=== PATIENT | female | born 1980 | race African-American/Black ===

== ENCOUNTER 2017-05-28 07:31 | Emergency (ER) | payer BC ==
[~2017-05-28] VITALS: Ht 167.6 cm; Wt 110.0 kg
[~2017-05-28 07:31] MED LIST: ADVIL200 M1 OR; CIPROFLOXACN500 MG PO; CORTISPORIN OTI10 ML AD; FLAGYL500 MG OR; LORTAB5 OR; MELOXICAM7.5 MG PO; NAPROSYN500 MG OR; NAPROSYN500 MG PO; NO; NO HOME MEDS; PHENERGAN25 MG/TAB PO; ULTRAM50 M1 PO
[2017-05-28] MEDS ORDERED: MIRALAX3350 N1 PO (08:08)
[2017-05-28 08:11] VITALS: BP 142/69
== END 2017-05-28 08:19 | disposition home or self-care (01) | DRG 394 ==
LOC: ED 07:31
DX: K64.4 Residual hemorrhoidal skin tags (principal); K62.5 Hemorrhage of anus and rectum

== ENCOUNTER 2017-12-09 15:28 | Inpatient (IN) | payer BC ==
[~2017-12-09] VITALS: Ht 167.6 cm; Wt 94.3 kg
[~2017-12-09 15:28] MED LIST changes: +MIRALAX3350 N1 PO
[2017-12-09 16:16] VITALS: BP 135/74
[2017-12-09 17:39] LABS: HEMATOCRIT 38.3 % (37.0-47.0); HEMOGLOBIN 12.5 g/dl (12.0-16.0); IMMATURE GRANULOCYTES 0.1 % (0.0-1.0); MEAN CELL VOLUME 81.1 fL CALC (80.0-100.0); MEAN CORPUSCULAR HGB 26.5 pG CALC (26.0-32.0); MEAN CORPUSCULAR HGB CONC 32.6 g/L CALC (32.0-36.0); NEUT# 3.6 thou/uL (2.00-7.15); RED BLOOD COUNT 4.72 mill/uL (4.20-5.60); RED CELL DISTRI WIDTH 14.6 % (11.5-15.5)
[2017-12-09 17:59] LABS: ANION GAP 16 (6-22 (CALC)); BUN 9 mg/dL (7-17); BUN/CREATININE RATIO 12 (12-20 (CALC)); CARBON DIOXIDE 23 mmol/l (22-30); CHLORIDE 108 mmol/l (95-108); CREATININE 0.8 mg/dL (0.5-1.0); GFR > 60 ML/MIN (>=60 (CALC)); GFR FOR AFR.AMER. > 60 ML/MIN (>=60 (CALC)); POTASSIUM 3.7 mmol/l (3.5-5.1); SODIUM 142 mmol/l (137-146)
[2017-12-09 20:30] VITALS: BP 119/81
[2017-12-10] VITALS (11 sets, daily range): BP systolic 95–132; BP diastolic 52–82
[2017-12-10 05:24] LABS: ANION GAP 12 (6-22 (CALC)); BUN 6 mg/dL (7-17); BUN/CREATININE RATIO 9 (12-20 (CALC)); CARBON DIOXIDE 25 mmol/l (22-30); CHLORIDE 109 mmol/l (95-108); CREATININE 0.7 mg/dL (0.5-1.0); GFR > 60 ML/MIN (>=60 (CALC)); GFR FOR AFR.AMER. > 60 ML/MIN (>=60 (CALC)); POTASSIUM 3.8 mmol/l (3.5-5.1); SODIUM 141 mmol/l (137-146)
[2017-12-10 05:42] LABS: URINE BILIRUBIN - DIPSTICK NEGATIVE (NEGATIVE); URINE BLOOD DIPSTICK NEGATIVE (NEGATIVE); URINE COLOR YELLOW; URINE GLUCOSE - DIPSTICK NEGATIVE (NEGATIVE); URINE KETONE NEGATIVE (NEGATIVE); URINE LEUK ESTERASE NEGATIVE (NEGATIVE); URINE NITRITE - DIPSTICK NEGATIVE (Negative); URINE PROTEIN - DIPSTICK NEGATIVE (NEG-TRACE); URINE UROBILINOGEN - DIPSTICK 0.2 E.U./dL (0.2)
[2017-12-10 05:43] LABS: URINE CLARITY CLEAR
[2017-12-11 04:05] VITALS: BP 94/58
[2017-12-11 05:00] LABS: HEMATOCRIT 36.8 % (37.0-47.0); HEMOGLOBIN 12.3 g/dl (12.0-16.0); IMMATURE GRANULOCYTES 0.2 % (0.0-1.0); MEAN CELL VOLUME 81.1 fL CALC (80.0-100.0); MEAN CORPUSCULAR HGB 27.1 pG CALC (26.0-32.0); MEAN CORPUSCULAR HGB CONC 33.4 g/L CALC (32.0-36.0); NEUT# 2.91 thou/uL (2.00-7.15); RED BLOOD COUNT 4.54 mill/uL (4.20-5.60); RED CELL DISTRI WIDTH 14.6 % (11.5-15.5)
[2017-12-11 05:10] LABS: ALBUMIN 3.2 g/dL (3.2-5.0); ALKALINE PHOSPHATASE 63 u/l (38-126); ANION GAP 12 (6-22 (CALC)); BILIRUBIN, TOTAL 0.5 mg/dL (0.0-1.4); BUN 5 mg/dL (7-17); BUN/CREATININE RATIO 8 (12-20 (CALC)); CARBON DIOXIDE 23 mmol/l (22-30); CHLORIDE 108 mmol/l (95-108); CREATININE 0.7 mg/dL (0.5-1.0); GFR > 60 ML/MIN (>=60 (CALC)); GFR FOR AFR.AMER. > 60 ML/MIN (>=60 (CALC)); POTASSIUM 3.8 mmol/l (3.5-5.1); SGPT/ALT 45 u/l (9-52); SODIUM 140 mmol/l (137-146); TOTAL PROTEIN 5.7 g/dL (6.3-8.2)
[2017-12-11 05:13] LABS: SGOT/AST 53 u/l (14-36)
[2017-12-11 09:12] VITALS: BP 96/56
[2017-12-11] MEDS ORDERED: PERCOCET1 TA2 PO (09:19)
[2017-12-11] MEDS ORDERED: Levaquin PO (09:20)
== END 2017-12-11 11:40 | disposition home or self-care (01) | DRG 419 ==
LOC: MS2 15:28
PROVIDERS: ADMIT Internal Medicine Geriatric Medicine; ATTEND Internal Medicine Geriatric Medicine
PROC: 0FT44ZZ Resection of Gallbladder, Percutaneous Endoscopic Approach (ICD-10-PCS; principal; 2017-12-10)
PROC: BF00YZZ Plain Radiography of Bile Ducts using Other Contrast (ICD-10-PCS; 2017-12-10)
DX: K80.10 Calculus of gallbladder with chronic cholecystitis without obstruction (principal); M19.90 Unspecified osteoarthritis, unspecified site
CPT/HCPCS: C9290; J2710; Q9967

== ENCOUNTER 2019-11-27 | Emergency (ER) | payer BC ==
[~2019-11-27] MED LIST changes: +Levaquin PO; +PERCOCET1 TA2 PO
[2019-11-27] MEDS ORDERED: PHENTERMINE37.5 MG PO (11:08)
[2019-11-27] MEDS ORDERED: PREDNISONE10 MG PO ×2 (12:05)
== END 2019-11-27 12:30 | disposition home or self-care (01) | DRG 556 ==
DX: M25.562 Pain in left knee (principal)

== ENCOUNTER 2020-04-28 07:10 | Emergency (ER) | payer BC ==
[~2020-04-28] VITALS: Ht 167.6 cm; Wt 96.3 kg
[~2020-04-28 07:10] MED LIST changes: +PHENTERMINE37.5 MG PO; +PREDNISONE10 MG PO
[2020-04-28] MEDS ORDERED: FLOXIN OTIC0.3 % AS (07:49)
[2020-04-28 08:08] VITALS: BP 120/74
== END 2020-04-28 08:08 | disposition home or self-care (01) | DRG 156 ==
LOC: ED 07:10
DX: H60.92 Unspecified otitis externa, left ear (principal)

== ENCOUNTER 2020-05-01 08:35 | Emergency (ER) | payer BC ==
[~2020-05-01] VITALS: Ht 167.6 cm; Wt 100.0 kg
[~2020-05-01 08:35] MED LIST changes: +FLOXIN OTIC0.3 % AS
[2020-05-01 09:45] VITALS: BP 128/76
== END 2020-05-01 09:45 | disposition home or self-care (01) | DRG 156 ==
LOC: ED 08:35
PROC: 3E1B78Z Irrigation of Ear using Irrigating Substance, Via Natural or Artificial Opening (ICD-10-PCS; principal; 2020-05-01)
PROC: 3E1B78Z Irrigation of Ear using Irrigating Substance, Via Natural or Artificial Opening (ICD-10-PCS; 2020-05-01)
DX: H61.23 Impacted cerumen, bilateral (principal)

== ENCOUNTER 2021-02-10 19:03 | Emergency (ER) | payer BC ==
[~2021-02-10] VITALS: Ht 167.6 cm; Wt 107.0 kg
[2021-02-10 21:24] VITALS: BP 138/71
== END 2021-02-10 21:24 | disposition home or self-care (01) | DRG 305 ==
LOC: ED 19:03
DX: I10 Essential (primary) hypertension (principal)

== ENCOUNTER 2021-05-16 08:26 | Emergency (ER) | payer BC ==
[2021-05-16 09:08] LABS: HEMATOCRIT 37.8 % (37.0-47.0); HEMOGLOBIN 12.2 g/dl (12.0-16.0); IMMATURE GRANULOCYTES 0.1 % (0.0-5.0); MEAN CELL VOLUME 80.3 fL CALC (80.0-100.0); MEAN CORPUSCULAR HGB 25.9 pG CALC (26.0-32.0); MEAN CORPUSCULAR HGB CONC 32.3 g/dL CAL (32.0-36.0); NEUT# 4.71 thou/uL (2.00-7.15); RED BLOOD COUNT 4.71 mill/uL (4.20-5.60); RED CELL DISTRI WIDTH 14.4 % (11.5-15.5)
[2021-05-16 09:32] LABS: ALBUMIN 3.8 g/dL (3.2-5.0); ALKALINE PHOSPHATASE 65 u/l (38-126); ANION GAP 13 (6-22 (CALC)); BILIRUBIN, TOTAL 0.5 mg/dL (0.0-1.4); BUN 9 mg/dL (7-17); BUN/CREATININE RATIO 13 (12-20 (CALC)); CARBON DIOXIDE 22 mmol/l (22-30); CHLORIDE 104 mmol/l (95-108); CREATININE 0.7 mg/dL (0.5-1.0); GFR > 60 ML/MIN (>=60 (CALC)); GFR FOR AFR.AMER. > 60 ML/MIN (>=60 (CALC)); POTASSIUM 3.7 mmol/l (3.5-5.1); SGOT/AST 20 u/l (14-36); SODIUM 136 mmol/l (137-146)
[2021-05-16] MEDS ORDERED: ONDANSETRON4 MG PO (09:37)
[2021-05-16] MEDS ORDERED: AMOXICILLIN500 MG PO (09:37)
[2021-05-16 10:02] VITALS: BP 131/74
== END 2021-05-16 10:07 | disposition home or self-care (01) | DRG 179 ==
LOC: ED 08:26
PROVIDERS: Emergency Medicine
DX: U07.1 COVID-19 (principal)

== ENCOUNTER 2022-07-11 19:47 | Emergency (ER) | payer BC ==
[~2022-07-11] VITALS: Ht 167.6 cm; Wt 105.0 kg
[2022-07-11] VITALS (9 sets, daily range): BP systolic 126–153; BP diastolic 79–128
[~2022-07-11 19:47] MED LIST changes: +AMOXICILLIN500 MG PO; +ONDANSETRON4 MG PO
[2022-07-11] MEDS ORDERED: HYDROCO/APAP1 TA9 PO (20:05)
[2022-07-11 20:19] LABS: HEMATOCRIT 40.7 % (37.0-47.0); HEMOGLOBIN 13.3 g/dl (12.0-16.0); IMMATURE GRANULOCYTES 0.5 % (0.0-5.0); MEAN CELL VOLUME 79.6 fL CALC (80.0-100.0); MEAN CORPUSCULAR HGB CONC 32.7 g/dL CAL (32.0-36.0); NEUT# 3.42 thou/uL (2.00-7.15); RED BLOOD COUNT 5.11 mill/uL (4.20-5.60); RED CELL DISTRI WIDTH 14.4 % (11.5-15.5)
[2022-07-11] MEDS ORDERED: ROBITUSSIN AC10 ML PO (21:11)
== END 2022-07-11 21:50 | disposition home or self-care (01) | DRG 153 ==
LOC: ED 19:47
PROVIDERS: Family Medicine
DX: J06.9 Acute upper respiratory infection, unspecified (principal); Z20.822 Contact with and (suspected) exposure to COVID-19

== ENCOUNTER 2022-09-24 03:58 | Emergency (ER) | payer MEDICAID ==
[~2022-09-24] VITALS: Ht 167.6 cm; Wt 110.0 kg
[~2022-09-24 03:58] MED LIST changes: +HYDROCO/APAP1 TA9 PO; +ROBITUSSIN AC10 ML PO
[2022-09-24 04:15] VITALS: BP 141/88
[2022-09-24 04:59] LABS: BASO% 0.2 % (0-3); EOS% 3.8 % (0-8); HEMATOCRIT 38.9 % (37.0-47.0); HEMOGLOBIN 12.9 g/dl (12.0-16.0); IMMATURE GRANULOCYTES 0.9 % (0.0-5.0); LYMPH% 46.7 % (15-41); MEAN CELL VOLUME 79.6 fL CALC (80.0-100.0); MEAN CORPUSCULAR HGB 26.4 pG CALC (26.0-32.0); MEAN CORPUSCULAR HGB CONC 33.2 g/dL CAL (32.0-36.0); NEUT# 3.74 thou/uL (2.00-7.15); NEUT% 41.4 % (42-76); RED BLOOD COUNT 4.89 mill/uL (4.20-5.60); RED CELL DISTRI WIDTH 14.5 % (11.5-15.5)
[2022-09-24 05:08] LABS: ALBUMIN 3.8 g/dL (3.2-5.0); ALKALINE PHOSPHATASE 88 u/l (38-126); AMYLASE 119 u/l (30-110); ANION GAP 10 (6-22 (CALC)); BUN 4 mg/dL (7-17); BUN/CREATININE RATIO 7 (12-20 (CALC)); CARBON DIOXIDE 24 mmol/l (22-30); CHLORIDE 107 mmol/l (95-108); CREATININE 0.6 mg/dL (0.5-1.0); GFR FOR AFR.AMER. > 60 ML/MIN (>=60 (CALC)); GFR OTHER RACES > 60 ML/MIN (>=60 (CALC)); LIPASE 61 u/l (23-300); POTASSIUM 3.7 mmol/l (3.5-5.1); SGOT/AST 26 u/l (14-36); SODIUM 138 mmol/l (137-146)
[2022-09-24 05:16] LABS: BILIRUBIN, TOTAL 0.1 mg/dL (0.0-1.4)
[2022-09-24] MEDS ORDERED: PREVACID30 M3 PO (06:49)
[2022-09-24] MEDS ORDERED: ANUCORT-HC25 MG RE (06:49)
[2022-09-24 06:52] VITALS: BP 125/83
== END 2022-09-24 07:04 | disposition home or self-care (01) ==
LOC: ED 03:58
PROVIDERS: Emergency Medicine
DX: K64.9 Unspecified hemorrhoids (principal)
CPT/HCPCS: Q9967